=== PATIENT | female | born 1990 | race Hispanic/Latino ===

== ENCOUNTER 2017-02-18 09:46 | Outpatient (CLI) | payer MEDICAID, OTHER ==
--- NOTE | 2017-02-18 13:30 | ULT ---
OBSTETRICAL ULTRASOUND: INDICATIONS: Evaluate anatomy. FINDINGS: Single live intrauterine gestation in a vertex presentation. The placenta is anterior in location wi thout evidence of previa. The cervical length is 6.1 cm. KIRT is 21.1 cm. head, heart, stomach, kidneys, cord insertion, bladder, spine, lips, nose, extremities, and thr ee vessel cord were within normal limits. The average gestational age by ultrasound, based on biometrics, is 30 weeks and 0 days. The es timated due date is 04/29/2017. The estimated weight is 1451 g, plus or minus 215 g (3 lbs 3 oz, plus or minus 8 oz). IMPRESSION: 1. Single live intrauterine gestation with size and dates as above. 2. survey within normal limits. POS: [facility]
== END 2017-02-18 09:47 | disposition home or self-care (01) ==
LOC: ULT 09:46
PROVIDERS: ATTEND Family Medicine
DX: Z33.1 Pregnant state, incidental (principal)
CPT/HCPCS: 76805

== ENCOUNTER 2017-03-04 03:12 | Day surgery (SDC) | payer OTHER ==
[2017-03-04] MEDS ORDERED: Lidocaine 2% Viscous Solution 20 ML, Aluminum & Magnesium Hydroxide 30 ML, Donnatal Eli... SSW SCH ×3 (04:30)
--- NOTE | 2017-03-04 05:09 | PRG ---
DATE OF SERVICE: 03/04/2017 CHIEF COMPLAINT: Abdominal pains. PRIMARY OB: Dr. Rhea Krishnan HISTORY OF PRESENT ILLNESS: The patient is a 26-year-old G2, P1 female with an intrauterine pregnanc y at 32 weeks, presenting with right-sided upper abdominal pain since about 6 o'clock. She reports t he pain first started after dinner. She reports that the pain is sharp, worse with activity and move ment. She reports that the pain woke her up from her sleep most recently. The patient reports that the pain is worse with activity, rolling over in bed, getting out of bed, lifting. She denies any il lness, fever, nausea, vomiting, diarrhea, constipation. She denies any leakage of fluid, any vaginal bleeding or any urinary problems. PAST MEDICAL HISTORY: Negative. PAST SURGICAL HISTORY: Negative. ALLERGIES: No known drug allergies. OBSTETRIC HISTORY: This is her second . She has had 1 term delivery. OB LABS: HIV is nonreactive. Hepatitis B surface antigen is nonreactive. RPR is nonreactive, GC an d chlamydia are negative. She is rubella nonimmune. Her one hour Glucola test was 108. Blood type is O positive. REVIEW OF SYSTEMS: Per HPI. PHYSICAL EXAMINATION: VITAL SIGNS: Blood pressure 121/79, heart rate of 114, respiratory rate 20, temperature 97.6. GENERAL: She appears to be in no acute distress. She is alert and oriented, and cooperative and ple asant to interact with. HEENT: Normocephalic, atraumatic. LUNGS: Clear to auscultation bilaterally. HEART: Regular rate and rhythm. ABDOMEN: Gravid. She has some tenderness with deviation of the uterus when palpating from the right side. No tenderness on the left side. She has no Esquivel's sign and no epigastric tenderness to pal pation. No suprapubic tenderness to palpation. Cervix is closed, thick and high per nursing staff. EXTREMITIES: Nontender, nonedematous. heart tracing for threatened labor shows a fetus with a baseline in the 130s with moderate long -term variability, positive accelerations, no decelerations, and shows the tocometer with some possib le irritability, but no contractions. ASSESSMENT AND PLAN: The patient is a 26-year-old G2, P1 female with an intrauterine at 32 weeks with abdominal pain most consistent with musculoskeletal etiology. She may have some componen t of gastritis for which we will be giving her a GI cocktail for further evaluation. The patient has been given labor precautions and can be discharged home. She has been given instructions to follow up with Dr. Rhea Krishnan as scheduled. She has also been counseled that if this pain were to return, if it was associated with food that she can try [id number] remedies such as Tums or Pep eusebio to see if that improves. The patient was offered Tylenol to help with her pain, which she has de clined. She says she preferred not take anything and does not feel like her pain is significant enou gh to need treatment.
== END 2017-03-04 05:23 | disposition home or self-care (01) ==
LOC: L&D/OP 03:12
PROVIDERS: ATTEND Family Medicine
DX: O99.89 Other specified diseases and conditions complicating pregnancy, childbirth and the puerperium (principal); R10.11 Right upper quadrant pain; Z3A.32 32 weeks gestation of pregnancy
CPT/HCPCS: 99283

== ENCOUNTER 2017-03-17 06:48 | Day surgery (SDC) | payer OTHER ==
[2017-03-17 07:39] VITALS: BMI 37.4
--- NOTE | 2017-03-17 07:59 | PDOC.EVN ---
Event Note - Event Note Event Note: 0755 L&D Triage Patient of Rhea Coy CC: N/V at 33 weeks 6 days HPI: 26 yo prior at 33 weeks 6 days here for nausea/vomiting since 0100. No ctx, no VELEZ, no visual changes, no other issues. Review of systems: complete ROS performed and pos as per HPI Past medical history: neg Ob History: no history of labor. Allergies: none Social: negative x 3 Physical exam: BP wnl, afebrile NAD Abd soft, NT S=D Cervix+ pending (RN exam) Monitors: NST cat 1, no ctx pattern Assessment: at 33 weeks 6 days with N/V Plan: 1. I will check patient out to [place] MD as arrived at change of duty 2. I have ordered CMP/CBC/RUQ sono for now 3. Await labs 4. Continue monitors for now
--- NOTE | 2017-03-17 08:01 | PDOC.EVN ---
Event Note - Event Note Event Note: CX was closed/thick/high by RN exam
[2017-03-17 08:11] LABS: #Lymphocytes 1.8 thou/uL (1.20-3.40); #Monocytes 0.5 thou/uL (0.11-0.59); #Neutrophils 6.2 thou/uL (1.40-6.50); %Basophils 0.5 % (0.0-1.0); %Eosinophils 0.3 % (0.0-10.0); %Monocytes 5.6 % (0.0-10.0); %Neutrophils 72.6 % (42.0-75.0); Hemoglobin 10.4 g/dL (12.0-16.0); Mean Corpuscular HGB CONC 32.2 g/dL (32.0-36.0); Mean Corpuscular Hemoglobin 26.4 pg (27.0-31.0); Mean Platelet Volume 7.7 fL (7.4-10.4); Platelet Count 250 thou/uL (130-400); RBC Distribution Width 14.2 % (11.5-14.5); Red Blood Cell (RBC) Count 3.92 mill/uL (4.20-5.40); White Blood Cell (WBC) Count 8.5 thou/uL (4.8-10.8)
[2017-03-17 08:37] LABS: ALT (SGPT) 26 U/L (8-55); AST (SGOT) 45 U/L (5-34); Albumin 3.2 g/dL (3.5-5.0); Alkaline Phosphatase 104 U/L (40-150); Anion Gap 15 mmol/L (10-20); BUN (Urea Nitrogen) 8 mg/dL (7.0-18.7); Bilirubin, Total 0.6 mg/dL (0.2-1.2); Calc. Creatinine Clearance 214 mL/min (70-130); Calcium 8.6 mg/dL (7.8-10.44); Carbon Dioxide 18 mmol/L (22-29); Chloride 106 mmol/L (98-107); Estimated GFR-MDRD Greater than 90; Globulin 3.5 g/dL (2.4-3.5); Glucose 92 mg/dL (70-105); Potassium 3.7 mmol/L (3.5-5.1); Protein, Total 6.7 g/dL (6.0-8.3); Sodium 135 mmol/L (136-145)
[2017-03-17] MEDS ORDERED: FLU VACC QS2017-18 36 mo. & older 0.5 ML SYRINGE IM ONE (09:00)
--- NOTE | 2017-03-17 09:20 | ULT ---
RIGHT UPPER QUADRANT ULTRASOUND: Indication: Nausea, vomiting. History of . Comparison: None. FINDINGS: No focal hepatic lesion is evident. Visualized aspects of the pancreas are unremarkable. Gallbladder is within normal limits. No sonographic Esquivel's sign is reported. Common bile duct measu res 5 mm. The right kidney measures 10.6 x 4.5 x 4.4 cm. No focal kidney lesion or hydronephrosis is evident. IMPRESSION: No acute sonographic abnormality within the right upper quadrant. POS: [facility]
--- NOTE | 2017-03-17 12:49 | PRG ---
DATE OF SERVICE: 03/17/2017 TIME: 0932 a.m. HISTORY OF PRESENT ILLNESS: The patient is a 26-year-old female who presented to Labor and Delivery with nausea and vomiting between 1 and 6 o'clock this morning. She has an intrauterine at 33 weeks and is a patient of Dr. Rhea Krishnan. Her initial evaluation was performed by Dr. Booth. A right upper quadrant ultrasound was ordered as well as a CMP and CBC. Those results are now availabl e. Since at the time of encounter with myself, the patient reports that she is feeling a lot better, denies any nausea or persistent vomiting. She denies any right upper quadrant tenderness and feels comfortable to go home. LABORATORY STUDIES: Her lab results shows a white count of 8.5, hemoglobin 10.4, hematocrit 32.1, pl atelets of 250,000. Her CMP had a sodium of 135, potassium 3.7, chloride of 106, bicarbonate 18, BUN is 8, creatinine 0.56, glucose of 92. Her AST 45, ALT of 26, alkaline phosphatase of 104. Right up per quadrant ultrasound, the final report is available and the results show no abnormalities on the r ight upper quadrant ultrasound. These findings have been shared with the patient. Reassurance has been given to her and she is being discharged to home. She has declined any prescrip tion for antinausea medication and has a follow up on 03/19/2017 with her doctor, Dr. Rhea Krishnan. I did review with her slightly abnormal AST at 45 and reported this likely could be from the severe vo miting she was having for several hours before. This report will be forwarded to Dr. Rhea Krishnan and follow up as she deems necessary can be performed.
== END 2017-03-17 09:14 | disposition home or self-care (01) ==
LOC: L&D/OP 06:48
PROVIDERS: ATTEND Family Medicine
DX: O21.9 Vomiting of pregnancy, unspecified (principal); Z3A.33 33 weeks gestation of pregnancy
CPT/HCPCS: 36415; 76705; 80053; 85025; 90471; 90682; 96372; 99283; G0008; Q2036

== ENCOUNTER 2017-05-01 09:04 | Inpatient (IN) | payer OTHER ==
[2017-05-01 09:35] VITALS: BMI 40.6
[2017-05-01 10:44] LABS: Amnisure Test RUPTURE DETECTED (No Rupture)
[2017-05-01 10:45] LABS: Amnisure Internal Control QC ACCEPTABLE (ACCEPTABLE)
[2017-05-01] MEDS ORDERED: Ondansetron HCl/PF 4 MG/2 ML Vial IVP PRN ×2 (10:54→18:36)
[2017-05-01] MEDS ORDERED: Lidocaine 1% (PF) 30 ML VIAL SC PRN (10:54)
[2017-05-01] MEDS ORDERED: Dextrose 5%-Lactated Ringers 1,000 ML IV SCH (11:00)
[2017-05-01] MEDS ORDERED: Lactated Ringer's 1,000 ML IV SCH (11:00)
[2017-05-01] MEDS ORDERED: Ibuprofen 800 MG TAB PO PRN (11:03)
[2017-05-01] MEDS ORDERED: LR 500 ML/Oxytocin 10 units 500 ML IV SCH (11:15)
[2017-05-01 11:55] LABS: Mean Corpuscular HGB CONC 31.9 g/dL (32.0-36.0); Mean Corpuscular Hemoglobin 25.3 pg (27.0-31.0); Mean Corpuscular Volume 79.4 fl (81.0-99.0); Mean Platelet Volume 8.7 fL (7.4-10.4); Platelet Count 247 thou/uL (130-400); RBC Distribution Width 15.4 % (11.5-14.5); Red Blood Cell (RBC) Count 4.35 mill/uL (4.20-5.40); White Blood Cell (WBC) Count 10.5 thou/uL (4.8-10.8)
[2017-05-01] MEDS ORDERED: Bupivacaine 0.5% 20 ML, Fentanyl 400 MCG in Sodium Chloride 0.9% 72 ML EPIDURAL SCH (12:15)
[2017-05-01 12:18] LABS: Syphilis Antibody Nonreactive (Nonreactive); Syphilis Antibody Index 0.04 S/CO (<1.00 Non-Reactive)
[2017-05-01 12:38] LABS: Hep B Surf Ag Non-Reactive S/CO (NonReactive)
[2017-05-01] MEDS ORDERED: Naloxone HCl 0.4 mg/ml Vial IVP PRN ×2 (13:53)
[2017-05-01] MEDS ORDERED: Acetaminophen 325 MG TAB PO PRN (13:53)
[2017-05-01] MEDS ORDERED: ePHEDrine/0.9% NaCl/PF SYRINGE 50 mg/10 ml SLOW IVP PRN (13:53)
[2017-05-01] MEDS ORDERED: Eucerin (Mineral Oil/Petrolatum,White) 30 gm Jar TOP PRN (13:53)
[2017-05-01] MEDS ORDERED: Lactated Ringer's 500 ML IV PRN (13:53)
[2017-05-01] MEDS ORDERED: Communication Order-Pharmacy FS SCH (14:00)
[2017-05-01] MEDS ORDERED: Fentanyl 4mcg/Marcaine 0.1% Cassette 100 ML EPIDURAL SCH (14:00)
[2017-05-01] MEDS: LR / Pitocin 40 units/1000 ml 1,000 ML IV PRN ×2 (14:45→15:59)
[2017-05-01] MEDS ORDERED: LR / Pitocin 40 units/1000 ml 1,000 ML IV SCH (18:36)
[2017-05-01] MEDS ORDERED: diphenhydrAMINE 25 MG CAP PO PRN (18:36)
[2017-05-01] MEDS ORDERED: Acetaminophen/Codeine 30-300mg Tablet PO PRN (18:36)
[2017-05-01] MEDS ORDERED: HYDROcodone/Acetaminophen 5/325 mg Tablet PO PRN (18:36)
[2017-05-01] MEDS ORDERED: Milk Of Magnesia 30 ML UDCUP PO PRN (18:36)
[2017-05-01] MEDS ORDERED: Benzocaine/Menthol 20-0.5% 60 ML CAN TOP PRN (18:36)
[2017-05-01] MEDS ORDERED: Lanolin Ointment 7 GM TUBE TOP PRN (18:36)
[2017-05-01] MEDS ORDERED: Preparation H Ointment 28 GM TUBE PR PRN (18:36)
[2017-05-01] MEDS ORDERED: Bisacodyl 10 MG SUPP PR PRN (18:36)
[2017-05-01] MEDS ORDERED: Ferrous Sulfate 325 MG TAB PO SCH (19:00)
[2017-05-01] MEDS: Ibuprofen 800 MG TAB PO SCH (21:36)
[2017-05-01] MEDS: Docusate Calcium (SURFAK) 240 MG CAP PO SCH (21:36)
[2017-05-02] MEDS: Ibuprofen 800 MG TAB PO SCH ×3 (06:00→21:16)
[2017-05-02] MEDS ORDERED: Adacel (T-DAP) 0.5 ML VIAL IM ONE (09:00)
[2017-05-02] MEDS: Prenatal Vitamin 1 TAB PO SCH (09:12)
[2017-05-02] MEDS: Docusate Calcium (SURFAK) 240 MG CAP PO SCH ×2 (09:12→21:16)
[2017-05-02] MEDS: Ferrous Sulfate 325 MG TAB PO SCH ×2 (09:13→17:58)
[2017-05-02] MEDS ORDERED: Bupivacaine PF 0.5% 30 ML VIAL ONE (15:01)
[2017-05-03] MEDS: Ibuprofen 800 MG TAB PO SCH ×2 (06:02→14:06)
[2017-05-03 08:08] VITALS: BP 113/71; TEMP 98.7
[2017-05-03] MEDS: Ferrous Sulfate 325 MG TAB PO SCH ×2 (09:42→18:09)
[2017-05-03] MEDS: Docusate Calcium (SURFAK) 240 MG CAP PO SCH (09:43)
[2017-05-03] MEDS: Prenatal Vitamin 1 TAB PO SCH (09:43)
--- NOTE | 2017-05-03 17:09 | PDOC.EVN ---
Event Note - Event Note Event Note: @1710: Asked to place discharge order for Dr Rhea Coy. DISCHARGE NOTE: Day 2: Patient is ready for discharge today. No acute issues. Afebrile. Vitals reviewed. S/P Vaginal Delivery. I will ok for discharge. Told to keep follow up with Dr Coy.
== END 2017-05-03 18:20 | disposition home or self-care (01) | DRG 775 ==
LOC: L&D/OP 09:04 → L&D 12:41 → 3SW 18:22
PROVIDERS: ADMIT Family Medicine; ATTEND Family Medicine
PROC: 10E0XZZ Delivery of Products of Conception, External Approach (ICD-10-PCS; principal; 2017-05-01)
PROC: 0HQ9XZZ Repair Perineum Skin, External Approach (ICD-10-PCS; 2017-05-01)
DX: O42.12 Full-term premature rupture of membranes, onset of labor more than 24 hours following rupture (principal); O70.0 First degree perineal laceration during delivery; Z37.0 Single live birth; Z3A.37 37 weeks gestation of pregnancy
CPT/HCPCS: 51702; 84112; 85027; 86780; 87340; 90715; 99285; J2001; J3010; J3490; J7050; J7120; S0020

== ENCOUNTER 2023-04-20 07:07 | Emergency (ER) | payer SELFPAY ==
[2023-04-20 08:50] LABS: Hematocrit 43.2 % (36.0-47.0); Hemoglobin 14.3 g/dL (12.0-16.0); Manual Diff?? YES; Mean Corpuscular HGB CONC 33.1 g/dL (32.0-36.0); Mean Corpuscular Hemoglobin 26.6 pg (27.0-31.0); Mean Corpuscular Volume 80.3 fl (78.0-98.0); Mean Platelet Volume 10.1 fL (7.4-10.4); Platelet Count 272 10x3/uL (130-400); RBC Distribution Width 13.5 % (11.5-14.5); Red Blood Cell (RBC) Count 5.38 mill/uL (4.20-5.40); White Blood Cell (WBC) Count 4.6 10x3/uL (4.8-10.8)
[2023-04-20 08:55] LABS: BHCG - Serum Negative (NEGATIVE)
[2023-04-20 08:56] LABS: Pregs Control Background? CLEAR/WHITE (CLR/WHITE); Pregs Control Bar Appear? YES (CONTROL BAR)
[2023-04-20 09:08] LABS: Delete Auto Diff?? YES
[2023-04-20] MEDS ORDERED: Ondansetron PF 4 MG/2 ML Vial ONE (09:13)
[2023-04-20 09:29] LABS: ALT (SGPT) 29 U/L (8-55); AST (SGOT) 33 U/L (5-34); Albumin 4.5 g/dL (3.5-5.0); Alkaline Phosphatase 39 U/L (40-110); Anion Gap 17 mmol/L (10-20); BUN (Urea Nitrogen) 11 mg/dL (7.0-18.7); Bilirubin, Total 0.5 mg/dL (0.2-1.2); Calc. Creatinine Clearance 0 mL/min (70-130); Calcium 9.5 mg/dL (7.8-10.44); Carbon Dioxide 23 mmol/L (22-29); Chloride 100 mmol/L (98-107); Estimated GFR 74; Glucose 106 mg/dL (70-105); Lipase 45 U/L (8-78); Potassium 3.7 mmol/L (3.5-5.1); Protein, Total 8.5 g/dL (6.0-8.3); Sodium 136 mmol/L (136-145)
[2023-04-20 10:03] LABS: Band 8 % (5-11); Lymphocytes 22 % (21-51); Metamyelocyte 1 % (0-0); Monocytes 3 % (0-10); Neutrophil 66 % (42-75); Platelet Adequacy Comment Appears Adequate
[2023-04-20 10:36] LABS: SARS-CoV-2 NAA Rapid Test Not Detected (NotDetected)
== END 2023-04-20 10:55 | disposition home or self-care (01) ==
LOC: ERS 07:07
DX: J10.1 Influenza due to other identified influenza virus with other respiratory manifestations (principal); R11.2 Nausea with vomiting, unspecified; Z55.6 Problems related to health literacy
CPT/HCPCS: 36415; 80053; 83690; 84703; 85025; 96374; J2405

== ENCOUNTER 2023-04-24 15:28 | Emergency (ER) | payer SELFPAY ==
[~2023-04-24 15:28] MED LIST: Iopamidol-370 76% 500 ML MDV (1 ML CHARGE) ONE
[2023-04-24 16:55] LABS: #Monocytes 0.7 thou/uL (0.11-0.59); #Neutrophils 4.5 thou/uL (1.40-6.50); %Basophils 0.1 % (0.0-1.0); %Eosinophils 0.4 % (0.0-10.0); %Lymphocytes 31.4 % (21.0-51.0); %Monocytes 8.6 % (0.0-10.0); %Neutrophils 59.1 % (42.0-75.0); Hematocrit 44.9 % (36.0-47.0); Hemoglobin 15.2 g/dL (12.0-16.0); Mean Corpuscular HGB CONC 33.9 g/dL (32.0-36.0); Mean Corpuscular Hemoglobin 26.7 pg (27.0-31.0); Mean Corpuscular Volume 78.9 fl (78.0-98.0); Mean Platelet Volume 9.9 fL (7.4-10.4); Platelet Count 395 10x3/uL (130-400); RBC Distribution Width 13.2 % (11.5-14.5); Red Blood Cell (RBC) Count 5.69 mill/uL (4.20-5.40); White Blood Cell (WBC) Count 7.7 10x3/uL (4.8-10.8)
[2023-04-24 17:08] LABS: BHCG - Serum Negative (NEGATIVE); Pregs Control Background? CLEAR/WHITE (CLR/WHITE); Pregs Control Bar Appear? YES (CONTROL BAR)
[2023-04-24] MEDS ORDERED: LORazepam 2 MG/ML SYR.(CARPUJECT) ONE (17:09)
[2023-04-24] MEDS ORDERED: Metoclopramide HCl 10 MG (2 mL) VIAL ONE (17:09)
[2023-04-24] MEDS ORDERED: diphenhydrAMINE 50 MG/ML VIAL ONE (17:09)
[2023-04-24 17:11] LABS: ALT (SGPT) 48 U/L (8-55); AST (SGOT) 35 U/L (5-34); Albumin 4.7 g/dL (3.5-5.0); Alkaline Phosphatase 41 U/L (40-110); Anion Gap 23 mmol/L (10-20); BUN (Urea Nitrogen) 14 mg/dL (7.0-18.7); Bilirubin, Total 1.1 mg/dL (0.2-1.2); CK (CPK) 44 U/L (29-168); Calc. Creatinine Clearance 0 mL/min (70-130); Calcium 9.9 mg/dL (7.8-10.44); Carbon Dioxide 19 mmol/L (22-29); Chloride 98 mmol/L (98-107); Estimated GFR 89; Globulin 4.1 g/dL (2.4-3.5); Glucose 105 mg/dL (70-105); Lipase 43 U/L (8-78); Potassium 3.5 mmol/L (3.5-5.1); Protein, Total 8.8 g/dL (6.0-8.3); Sodium 136 mmol/L (136-145)
== END 2023-04-24 18:48 | disposition home or self-care (01) ==
LOC: ERS 15:28
DX: R11.10 Vomiting, unspecified (principal); R19.7 Diarrhea, unspecified; E86.0 Dehydration
CPT/HCPCS: 71045; 74177; 80053; 82550; 83690; 84703; 85025; 96361; 96374; 96375; J1200; J2060; J2765; Q9967

== ENCOUNTER → 2024-12-26 | Emergency (ER) | payer SELFPAY ==
[~2024-12-26] MED LIST changes: +Droperidol 5 MG/2 ML VIAL ONE; -Iopamidol-370 76% 500 ML MDV (1 ML CHARGE) ONE
[2024-12-26 06:06] LABS: #Basophils Less than 0.03 10x3/uL (0.0-0.2); #Eosinophils Less than 0.03 10x3/uL (0.0-0.7); #Monocytes 0.71 10x3/uL (0.11-0.59); #Neutrophils 6.88 10x3/uL (1.40-6.50); %Basophils 0.2 % (0.0-1.0); %Eosinophils 0.1 % (0.0-10.0); %Lymphocytes 23.8 % (21.0-51.0); %Monocytes 7.1 % (0.0-10.0); %Neutrophils 68.5 % (42.0-75.0); Hematocrit 39.5 % (36.0-47.0); Hemoglobin 13.5 g/dL (12.0-16.0); Mean Corpuscular Hemoglobin 26.6 pg (27.0-31.0); Mean Corpuscular Volume 77.9 fL (78.0-98.0); Platelet Count 322 10x3/uL (130-400); Red Blood Cell (RBC) Count 5.07 mill/uL (4.20-5.40); White Blood Cell (WBC) Count 10.04 10x3/uL (4.8-10.8)
[2024-12-26 06:28] LABS: Magnesium 1.8 mg/dL (1.6-2.6)
[2024-12-26 06:30] LABS: ALT (SGPT) 20 U/L (Less than 34); AST (SGOT) 18 U/L (11-34); Albumin 3.8 g/dL (3.1-4.5); Alkaline Phosphatase 50 U/L (40-110); Anion Gap 17 mmol/L (10-20); BUN (Urea Nitrogen) 9 mg/dL (7.0-18.7); Bilirubin, Total 0.7 mg/dL (0.3-1.2); Calc. Creatinine Clearance 0 mL/min (70-130); Calcium 8.7 mg/dL (7.8-10.44); Carbon Dioxide 15 mmol/L (22-29); Chloride 104 mmol/L (98-107); Globulin 3.5 g/dL (2.4-3.5); Glucose 92 mg/dL (70-105); Lipase 20 U/L (8-78); Potassium 3.4 mmol/L (3.5-5.1); Sodium 133 mmol/L (136-145)
[2024-12-26 08:32] LABS: Bacteria/HPF None Seen HPF (None Seen); CAUTI Indications for Culture Pelvic or flank pain; Glucose, Urine (Dipstick) Normal (Negative); Leukocyte Negative Leu/uL (Negative); Pregnancy Test - Urine (BHCG) Negative (Negative); Pregu Control Background? CLEAR/WHITE (CLR/WHITE); Pregu Control Bar Appear? YES (CONTROL BAR); Protein, Urine (Dipstick) Negative (Neg-Trace); RBC/HPF 0-3 HPF (0-3); Specific Gravity, Urine 1.011 (1.002-1.036); WBC/HPF 0-3 HPF (0-3)
[2024-12-26 08:33] LABS: Urine Culture Reflex No No
[2024-12-26 08:36] LABS: Cocaine Metabolite Screen Negative (Negative); THC/Cannabinoid Screen PRELIM POSITIVE (Negative); Tricyclic Screen Negative (Negative)
== END ==
LOC: ERS 05:34
DX: R11.16 Cannabis hyperemesis syndrome (principal)
CPT/HCPCS: 71045; 80053; 80306; 81001; 81025; 83605; 83690; 83735; 84484; 85025; 93005; 96361; 96374; J1790